=== PATIENT | female | born 1980 | race American Indian/Alaskan Native ===

== ENCOUNTER 2021-01-21 12:19 | Emergency (ER) | payer SELFPAY ==
[2021-01-21] MEDS ORDERED: SODIUM CHLORIDE 0.9% 1000 ML 1,000 ML IV ONE (12:36)
[2021-01-21] MEDS ORDERED: KETOROLAC 30 MG/1 ML INJ IV ONE (12:36)
[2021-01-21] MEDS ORDERED: dexAMETHasone 20 MG/5 ML VIAL IV ONE (12:36)
[2021-01-21] MEDS ORDERED: METOCLOPRAMIDE 10 MG/2 ML INJ IV ONE (12:36)
[2021-01-21] MEDS ORDERED: diphenhydrAMINE 50 MG/ML VIAL IV ONE (12:36)
--- NOTE | 2021-01-21 12:36 | Emergency Department Report ---
ED General Adult HPI - General Chief complaint: Headache Stated complaint: HEADACHE Time Seen by Provider: 01/21/21 12:35 Source: patient Mode of arrival: Ambulatory Limitations: No Limitations - History of Present Illness Initial comments: 40-year-old -[place] female patient presents with complaints of headache x1 week. She states over the past few months she has had recurrent migraines. Patient reports 2 months ago she was seen in the ED and evaluated for migraines and treated. She states she was discharged with Fioricet and it does not help with her headaches. Patient comes in today stating she is unable to get rid of her current headache episode for the past week. She denies any numbness/tingling/weakness in her limbs, vision changes, dizziness, difficulty with speech/ambulation, confusion, or memory loss. No head trauma per patient or past medical history. She admits to photophobia and nausea without vomiting. Patient describes the headache as aching and throbbing and rates it as a 7/10 in severity. She states the headache is bilateral in the frontal portion of her head - Related Data Allergies Allergy/AdvReac Type Severity Reaction Status Date / Time No Known Allergies Allergy Verified 01/21/21 12:30 ED Review of Systems ROS: Stated complaint: HEADACHE Other details as noted in HPI Constitutional: denies: chills, diaphoresis, fever, malaise Eyes: denies: eye pain, vision change Respiratory: denies: cough, shortness of breath Gastrointestinal: nausea. denies: abdominal pain Skin: denies: change in color Neurological: headache. denies: numbness, paresthesias, confusion, abnormal gait, vertigo Hematological/Lymphatic: denies: easy bleeding ED Physical Exam - General Limitations: No Limitations General appearance: alert, in no apparent distress, obese - Head Head exam: Present: atraumatic, normocephalic - Eye Eye exam: Present: normal appearance, PERRL, EOMI. Absent: scleral icterus - Respiratory Respiratory exam: Present: normal lung sounds bilaterally. Absent: respiratory distress - Cardiovascular Cardiovascular Exam: Present: regular rate, normal rhythm - Neurological Exam Neurological exam: Present: alert, oriented X3, CN II-XII intact, normal gait. Absent: motor sensory deficit - Expanded Neurological Exam Expanded Cerebellar function: Finger to Nose: Normal, Heel to Levin: Normal, Romberg: Normal Sensory exam: Upper Extremity Light Touch: Normal, Lower Extremity Light Touch: Normal Motor strength exam: RUE: 4, LUE: 4, RLE: 4, LLE: 4 Best Eye Response ([place]): (4) open spontaneously Best Motor Response ([place]): (6) obeys commands Best Verbal Response ([place]): (5) oriented Campos Total: 15 - Psychiatric Psychiatric exam: Present: normal affect, normal mood - Skin Skin exam: Present: warm, dry, intact, normal color. Absent: rash ED Course Vital Signs 01/21/21 12:29 Temperature 97.9 F Pulse Rate 90 Respiratory 18 Rate Blood Pressure 128/68 O2 Sat by Pulse 98 Oximetry ED Medical Decision Making - Medical Decision Making 40-year-old -[place] female patient presents with complaints of headache x1 week. She states over the past few months she has had recurrent migraines. Patient reports 2 months ago she was seen in the ED and evaluated for migraines and treated. She states she was discharged with Fioricet and it does not help with her headaches. Patient comes in today stating she is unable to get rid of her current headache episode for the past week. She denies any numbness/tingling/weakness in her limbs, vision changes, dizziness, difficulty with speech/ambulation, confusion, or memory loss. No head trauma per patient or past medical history. She admits to photophobia and nausea without vomiting. Patient describes the headache as aching and throbbing and rates it as a 7/10 in severity. She states the headache is bilateral in the frontal portion of her head Patient is neurologically intact on exam. Patient reports headache has completely resolved after migraine cocktail. Her vitals are normal and she is well-appearing. Patient is stable for discharge home. Recommend follow-up with primary care and neurology for further assessment of recurrent migraine headaches. Strict return precautions were discussed in detail with patient who verbalizes understanding. Critical care attestation.: If time is entered above; I have spent that time in minutes in the direct care of this critically ill patient, excluding procedure time. ED Disposition Clinical Impression: Migraine headache Disposition: HOME / SELF CARE / HOMELESS Is pt being admited?: No Condition: Stable Instructions: Recurrent Migraine Headache, [id number] Referrals: [facility] [Provider Group] - 3-5 Days [facility] [Provider Group] - 3-5 Days Forms: Work/School Release Form(ED)
[2021-01-21 14:43] VITALS: BP 132/68
== END 2021-01-21 14:53 | disposition home or self-care (01) ==
LOC: ED 12:19
DX: G43.909 Migraine, unspecified, not intractable, without status migrainosus (principal)
CPT/HCPCS: 96361; 96374; 96375; 99282; J1100; J1200; J1885; J2765; J7030